=== PATIENT | female | born 1975 | race Caucasian/White ===

== ENCOUNTER 2017-05-09 21:16 | Emergency (ER) | payer OTHER ==
[~2017-05-09] VITALS: Ht 160 cm; Wt 81.0 kg
[~2017-05-09 21:16] MED LIST: ADDERALL XR 2525 MG PO; ASMANEX TW200 MICRO1 IH; DAILY MULTIPLE1 EACH PO; IBUPROFEN600 MG PO; PROVENTIL HFA6.7 GM IH; SERTRALINE HCL50 MG PO; ZOLPIDEM TARTRAT5 MG PO
[2017-05-10] MEDS ORDERED: ZOFRAN8 MG PO (00:22)
[2017-05-10] MEDS ORDERED: NORCO 5/3251 TABLET PO (00:22)
[2017-05-10 01:15] VITALS: BP 131/88
== END 2017-05-10 01:29 | disposition home or self-care (01) ==
LOC: EME 21:16
DX: S86.911A Strain of unspecified muscle(s) and tendon(s) at lower leg level, right leg, initial encounter (principal); X58.XXXA Exposure to other specified factors, initial encounter; Y92.003 Bedroom of unspecified non-institutional (private) residence as the place of occurrence of the external cause; J45.909 Unspecified asthma, uncomplicated; F17.200 Nicotine dependence, unspecified, uncomplicated
CPT/HCPCS: 73564; 99281; 99284